=== PATIENT | female | born 1960 | race Caucasian/White ===

== ENCOUNTER → 2019-11-04 09:05 | Outpatient (CLI) | payer OTHER, SELFPAY ==
--- NOTE | ~2019-11-04 | MR_ITS ---
EXAMINATION: MR knee RT wo con DATE: 11/04/2019 09:53 INDICATION: Right knee joint effusion with pain and swelling TECHNIQUE: Magnetic resonance imaging (MRI) of the right knee was performed without intravenous contr ast. Sequences included coronal PD-weighted FSE, coronal PD-weighted FS FSE, sagittal T2-weighted FS E, sagittal PD-weighted FS FSE and axial PD weighted fat saturated FSE. COMPARISON: None. FINDINGS: Medial compartment: Complex tear of the medial meniscus with longitudinal oblique tear extending to the inferior articula r surface of the body and posterior horn of the medial meniscus. There is a secondary tear plane at t he posterior horn resulting in a meniscal flap arising from the lateral side of the posterior horn wh ich extends a short distance anteriorly along the shoulder the intercondylar eminence. Deep chondral ulceration along the anterior weightbearing medial femoral condyle with small central subchondral ost eophyte and minimal subarticular edema. Partial-thickness cartilage loss with smooth chondral surface along the posterior and medial margins of the medial tibial plateau and medial side of the posterior weightbearing medial femoral condyle. Lateral compartment: Longitudinal horizontal tear plane extending to the cephalad articular surface near the free edge of the body of the lateral meniscus. Deep chondral fissuring along the lateral tibial plateau and anteri or weightbearing lateral femoral condyle without degenerative subchondral changes. Small central subc hondral osteophytes at the site of deep chondral ulceration at the posterior most weightbearing later al femoral condyle. There is an additional delaminating chondral flap tear at or near the bone chondr al interface which extends 4 mm inferiorly from the inferior margin of the osteophyte. Patellofemoral compartment: Chondral ulceration and fissuring along the patella which raises. Near full-thickness along the apica l ridge with underlying subarticular edema. Small region of chondral fissuring without degenerative s ubarticular changes at the inferomedial aspect of the lateral trochlea. Ligaments and tendons: Anterior and posterior cruciate ligaments are normal. The medial collateral ligament and fibular damon ateral ligament complex are normal. Mild distal quadriceps tendinopathy with small enthesophytes at i ts patellar insertion. Additional mild tendinopathy at the proximal distal patellar tendon. The visua lized medial and lateral hamstring tendons as well as the iliotibial band are normal. Fluid: Large right knee joint effusion. 7 x 4 x 9 mm loose osteochondral body within a recess of Hoffa's fat pad anterior to the intercondylar notch. Osseous/other: Bone alignment is normal. No fracture or pathologic marrow replacing process. IMPRESSION: 1. Medial and lateral meniscal tears, the former complex with small displaced meniscal flap arising f rom the posterior horn. 2. 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 3. Likely reactive large right knee joint effusion. Reviewed, dictated and finalized at location A. IMPRESSION: 1. Medial and lateral meniscal tears, the former complex with small displaced m eniscal flap arising from the posterior horn. 2. 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 3. Likely reactive large right knee joint effusion.
== END ==
PROVIDERS: PCP Family Medicine; Visit Provider Orthopaedic Surgery
DX: M25.461 Effusion, right knee (principal); M23.251 Derangement of posterior horn of lateral meniscus due to old tear or injury, right knee; M23.221 Derangement of posterior horn of medial meniscus due to old tear or injury, right knee
CPT/HCPCS: 73721

== ENCOUNTER 2019-11-23 01:28 | Outpatient (CLI) | payer OTHER, SELFPAY ==
[2019-11-24 13:59] LABS: SARS-CoV-2 RNA PCR Negative
== END 2019-11-23 01:29 | disposition home or self-care (01) ==
LOC: ANHCOVIDDT 01:28
PROVIDERS: PCP Family Medicine; Visit Provider Orthopaedic Surgery
DX: Z01.818 Encounter for other preprocedural examination (principal); Z11.59 Encounter for screening for other viral diseases
CPT/HCPCS: 87635; C9803; U0003

== ENCOUNTER 2019-11-25 03:52 | Day surgery (SDC) | payer OTHER, SELFPAY ==
[2019-11-16 18:06] VITALS: BMI 21.8
[2019-11-25] VITALS (8 sets, daily range): BP systolic 113–160; BP diastolic 71–95; PULSE 55–71; RESP 12–20; TEMP 36.3–36.4; O2SAT 93–100
[2019-11-25] MEDS: ACETAMINOPHEN 500 MG TABLET 1000 MG PO (06:10)
[2019-11-25] MEDS: LACTATED RINGERS 1,000 ML 30 ML IV CONT ×2 (06:33→08:19)
[2019-11-25] MEDS: KETOROLAC 15 MG/ML VIAL (*BKC) IV PUSH (06:33)
--- NOTE | 2019-11-25 06:58 | P.PNAN_ITS ---
Anes - Initial Pre Proc Eval Procedure: Operation Date: 11/25/19 07:30 Proposed Procedures p Right Knee Arthroscopy, Partial Medial And Lateral Meniscectomy - Darryl Elkins MD Date/Time: 11/25/19 06:58 Surgeon: Darryl Elkins MD Pre Op Diagnosis: Right Knee Medial & Lateral Meniscus Tear Patient Data Age: 59 Gender: F Height: 5 ft 6 in Weight: 61.5 kg Last Vital Signs Temp 97.6 F 11/25/19 06:51 Pulse 71 11/25/19 06:51 Resp 16 11/25/19 06:51 BP 160/95 H 11/25/19 06:51 Pulse Ox 98 11/25/19 06:51 Allergies Allergy/AdvReac Type Severity Reaction Status Date / Time No Known Allergies Verified 11/25/19 06:05 Home Medications Medication Instructions Recorded Confirmed Type Collagen Plus Vitamin C 1 cap PO DAILY 11/16/19 11/25/19 History calcium carbonate [Calcium 600] 600 mg PO DAILY 11/16/19 11/25/19 History cholecalciferol (vitamin D3) 25 mcg PO DAILY 11/16/19 11/25/19 History [Vitamin D3] lisinopril 10 mg PO DAILY 11/16/19 11/25/19 History omeprazole 20 mg PO DAILY 11/16/19 11/25/19 History metoprolol tartrate 100 mg PO BID 11/21/19 11/25/19 History Patient hx anesthesia problems: none Family hx anesthesia problems: none PMFSH Past Medical History Medical History (Updated 11/25/19 @ 06:58 by Eduard Calvillo MD) 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 GERD (gastroesophageal reflux disease) Hypertension Knee joint effusion Osteoarthritis of right knee Social History Social History Smoking packs per day: 1 Smoking cigarettes per day: 20.0 Years smoked: 49 Smoking pack-years: 49.00 Smoking status: Heavy tobacco smoker Tobacco type: cigarettes Second hand tobacco smoke exposure: No Alcohol intake: current Substance use: never Living arrangements: with family Spiritual care concerns: No Anes - Eval Final PreProcedure Day of Procedure 11/25/19 06:58 Patient weight: normal Heart: regular rate and rhythm Lungs: clear to auscultation Airway: Mallampati scale class II Neurological: alert and oriented Last oral intake: >/= 8 hours ASA classification: II Emergent: no Anesthetic plan: proceed Anesthesia type and monitoring: general LMA and standard monitoring Informed Consent: The patient's anesthetic plan and its attendant risks and cailin efits were discussed with the patient/family/POA. Questions were solicited and answers provided to the satisfaction of the patient/family/POA.
--- NOTE | 2019-11-25 07:17 | WPDHPUPDATE1 ---
History and Physical Update Update Date/Time: 11/25/19 07:17 History and Physical has been reviewed, including an updated exam of the patient. There are NO changes in the patient's condition. Risks, benefits, and alternatives have been discussed and questions answered. Patient agrees to proceed with procedure.
[2019-11-25] MEDS: ceFAZolin 2 GM/D5W 50 ML 2 GM/50 ML BAG IVPB (07:22)
[2019-11-25] MEDS: BUPIVACAINE/EPINEPHRINE 0.5% 30 ML VIAL INFILTRATE (07:43)
--- NOTE | 2019-11-25 08:29 | P.OP_ITS ---
Procedure Note - Detailed Date of procedure: 11/25/19 Pre-op diagnosis: Right Knee Medial & Lateral Meniscus Tear Medial and lateral meniscus tear. Post-op diagnosis: same Procedure performed: Arthroscopic partial medial and lateral meniscectomy. Description of procedure: A large displaced medial meniscus fragment was identified in the anterior aspect of the medial compartment. This appeared to be chronically irritating the medial femoral condyle which showed grade 3 chondromalacia. A subtotal meniscectomy was performed. The lateral meniscus showed modest degenerative tearing and was treated with arthroscopic debridement in the inner rim of the meniscus pretty much in its entirety. Grade 2 chondromalacia on the central weight-bearing portion of the lateral tibia. Grade 1/2 on the femur in a small section laterally. Patella showed grade 3 chondromalacia and a large section. The trochlea showed grade 1 chondromalacia. No other definite loose body was found. It was felt that the displaced anterio r meniscus represented the loose body seen on the MRI. The anterior cruciate ligament was intact. [facility] Surgeon: Darryl Elkins MD Exhibit Carpenter: Sandy reilly; physician assistant professor of religion Estimated blood loss (mL): 5 Complications: None Condition: stable Findings: Brief History: The patient complained of knee pain, large effusions and mechanical symptoms despite conservative treatment. MRI confirmed the presence of a meniscus tear. Procedure Details: The patient was identified and the surgical site confirmed and signed in the preoperative holding area. Antibiotics were started per protocol. She was brought to the operative room and transferred to the OR table. A general anesthetic was administered. Supine position with the operative lower extremity position in the leg woodson after placement of a well padded tourniquet. The leg support was lowered and the contralateral limb was supported with a soft bolster. The knee was prepped and draped in the usual sterile fashion. A time-out was performed. The portal sites were marked and infiltrated with 0.5% Marcaine 20 mL. The limb was exsanguinated and the tourniquet inflated to 300 mL Hg. Standard inferolateral and inferomedial portals were established. Inflow was obtained with the saline pump. The camera was introduced. Diagnostic inspection of the joint was accomplished. The medial meniscus was identified in the anterior medial compartment. The lateral meniscus was unstable and severely damaged. Subtotal meniscectomy was performed as described above. Partial lateral meniscectomy was performed. No other loose bodies were identified. There was a mild synovitis in the medial compartment. Mild to moderate early degenerative changes diffusely. The arthroscopic instruments were removed. The tourniquet released and wounds closed with subcutaneous 4-0 Monocryl absorbable suture. Steri strips and a sterile dressing were applied. A light elastic wrap was placed. The patient was extubated and brought to the recovery room in stable condition.
== END 2019-11-25 10:02 | disposition home or self-care (01) ==
PROVIDERS: PCP Family Medicine; Visit Provider Orthopaedic Surgery
PROC: (CPT 29870; principal; 2019-11-25 07:30)
DX: M23.331 Other meniscus derangements, other medial meniscus, right knee (principal); M23.361 Other meniscus derangements, other lateral meniscus, right knee; M94.261 Chondromalacia, right knee; I10 Essential (primary) hypertension; K21.9 Gastro-esophageal reflux disease without esophagitis; F17.210 Nicotine dependence, cigarettes, uncomplicated
CPT/HCPCS: 29880; A9270; J0690; J1100; J1885; J2250; J2405; J2704; J3010; J7120

== ENCOUNTER → 2022-01-11 07:47 | Outpatient (CLI) | payer OTHER, SELFPAY ==
--- NOTE | ~2022-01-11 | DEXA_ITS ---
Bone Density Report Name: CRISTIANE SHEEHAN Age: 61 Sex: Female Ethnicity: White Date of : 1960 Indication: postmenopausal; screening for osteoporosis; height loss; prior fracture; Referring Provider: Minal Tejada Study: Bone densitometry was performed. Exam Date: January 11, 2022 Accession number: [id number] Bone Density: Region BMD T-score Z-score Classification AP Spine (L1, L4) 1.145 1.0 2.6 Normal Femoral Neck (Left) 0.617 -2.1 -0.7 Osteopenia Total Hip (Left) 0.751 -1.6 -0.4 Osteopenia Femoral Neck (Right) 0.620 -2.1 -0.6 Osteopenia Total Hip (Right) 0.710 -1.9 -0.8 Osteopenia Total Hip Mean 0.731 -1.8 -0.6 Osteopenia World Health Organization criteria for BMD impression classify patients as: Normal (T-score at or above -1.0), Osteopenia (T-score between -1.0 and -2.5), or Osteoporosis (T-score at or below -2.5). 10-year Fracture Risk: FRAX not reported because: Prior hip or vertebral fracture Clinical Information Provided by Patient: Have had a previous hip or vertebral fracture Has had a low trauma fracture Smokes Has 3 or more alcoholic drinks per day Has used the following medications: Vitamin D Patient maximum height was 65.75 Menopause Age: 38 Drinks caffeinated beverages Onset of menses at age 11 Number of children 0 Impression: The patient has low bone mass, based on the Left Femoral Neck T-score. The patient has risk factors, including: smoking, excessive alcohol use, previous fracture. Discussion: INCREASED RISK OF FRACTURE DUE TO HISTORY OF FRACTURE. The patient's previous fracture puts the patient at high risk of a future fracture. In untreated patients, the risk of osteoporotic fracture increases approximately two-fold for each 1.0 SD decrease in T-score. Low bone density is not the only risk factor for fracture; also consider factors such as patient's age, frailty or poor health, risk of falling, risk of injury, previous osteoporotic fracture, family history of osteoporosis, cigarette smoking, low body weight, etc. Not everyone with a low trauma fracture has osteoporosis; osteomalacia and other metabolic bone disorders should also be considered. Patients who have osteoporosis should be evaluated for specific diseases and conditions (secondary causes) that may cause or contribute to bone loss and fracture risk. National Osteoporosis Foundation (NOF) recommends pharmacologic intervention for patients with a prior hip or vertebral fracture regardless of BMD T-score. The patient should follow a healthful lifestyle (good nutrition with adequate calcium and vitamin D, and appropriate weight-bearing exercise). Follow-Up: Consider a repeat BMD and Vertebral Fracture Assessment (VFA) exam in 2 years or sooner if medically necessary, to reassess this patient's status. Reported by: NANY
--- NOTE | ~2022-01-11 | MM_ITS ---
EXAMINATION: MM screening oj BI w crista HISTORY: Screening mammogram TECHNIQUE: Craniocaudal and mediolateral oblique 3-D tomosynthesis images were obtained and synthetic 2-D images were generated. CAD analysis was submitted and interpreted. COMPARISON: No prior mammogram is available for comparison at this institution. BREAST PARENCHYMAL COMPOSITION: There are scattered areas of fibroglandular density. FINDINGS: There is no evidence of suspicious mass, calcification, or architectural distortion to sugg est malignancy in either breast. There has been no suspicious interval change. IMPRESSION: 1. No mammographic evidence of malignancy. 2. Recommend routine screening mammography in one year. BI-RADS Category 1: Negative Reviewed, dictated and finalized at location B.
== END ==
PROVIDERS: PCP Family Medicine; Visit Provider Physician Assistant Medical
DX: Z12.31 Encounter for screening mammogram for malignant neoplasm of breast (principal); Z13.820 Encounter for screening for osteoporosis; M85.852 Other specified disorders of bone density and structure, left thigh; M85.851 Other specified disorders of bone density and structure, right thigh
CPT/HCPCS: 77063; 77067; 77080

== ENCOUNTER 2023-11-02 08:59 | Outpatient (CLI) | payer MEDICARE, OTHER, SELFPAY ==
--- NOTE | ~2023-11-02 | US_ITS ---
EXAMINATION: US abdomen complete DATE: 11/02/2023 09:49 INDICATION: Abnormal levels of other serum enzymes. TECHNIQUE: Multiple grayscale and Doppler ultrasound images of the abdomen were obtained. COMPARISON: None FINDINGS: The visualized portions of the head, body, and tail of the pancreas are normal. There is di ffuse hepatic steatosis. There is a 2.6 cm hyperechoic mass in the liver. The gallbladder is normal i n size. No gallstones or gallbladder wall thickening. There is no sonographic Marroquin's sign. The comm on duct is normal and measures 4 mm. The spleen is normal in size. Calcifications in the spleen are c onsistent with old granulomatous disease. The kidneys are normal in size. Abdominal aorta is normal in caliber. Inferior vena cava is normal. IMPRESSION: 1. Diffuse hepatic steatosis. 2. 2.6 cm hyperechoic liver mass. In the absence of chronic liver disease or known malignancy, this f inding is likely a hemangioma or focal steatosis. Reviewed, dictated and finalized at location A. IMPRESSION: 1. Diffuse hepatic steatosis. 2. 2.6 cm hyperechoic liver mass. In the absence of chronic liver disease or kn own malignancy, this finding is likely a hemangioma or focal steatosis.
== END 2023-11-02 09:00 | disposition home or self-care (01) ==
PROVIDERS: PCP Family Medicine; Visit Provider Physician Assistant Medical
DX: R74.8 Abnormal levels of other serum enzymes (principal); K76.0 Fatty (change of) liver, not elsewhere classified
CPT/HCPCS: 76700

== ENCOUNTER 2023-11-27 12:44 | Outpatient (CLI) | payer MEDICARE, OTHER, SELFPAY ==
--- NOTE | ~2023-11-27 | US_ITS ---
Duplex Sonography of the bilateral lower extremities: Indication: Soft tissue disorder, left calf pain and swelling Sagittal and transverse B-mode images as well as color-flow imaging were performed on the right and l eft femoral and popliteal veins. B-mode examination was done without and with compression in the tra nsverse plane. There is good visualization of the bilateral common femoral, proximal profunda femora l, superficial femoral, greater saphenous, and popliteal veins. Normal flow was seen on color-flow im aging. Normal compressibility was demonstrated. There is normal flow in the visualized right calf ve ins. There is noncompressibility of the left peroneal and posterior tibial veins, with some echogenic mate rial in them, compatible with thrombus. Impression: Thrombus involving the left peroneal and posterior tibial veins in the calf. Reviewed, dictated and finalized at location M. Impression: Thrombus involving the left peroneal and posterior tibial veins in the calf.
== END 2023-11-27 12:45 | disposition home or self-care (01) ==
PROVIDERS: PCP Family Medicine; Visit Provider Physician Assistant Medical
DX: M79.89 Other specified soft tissue disorders (principal)
CPT/HCPCS: 93970

== ENCOUNTER 2024-05-26 10:02 | Outpatient (CLI) | payer MEDICARE, OTHER, SELFPAY ==
--- NOTE | ~2024-05-26 | US_ITS ---
EXAMINATION: US abdomen limited DATE: 05/26/2024 11:27 INDICATION: Fatty liver. Liver mass. TECHNIQUE: Multiple grayscale and Doppler ultrasound images of the abdomen were obtained. COMPARISON: Ultrasound 11/02/2023 FINDINGS: The visualized portions of the head, body, and tail of the pancreas are normal. There is di ffuse hepatic steatosis. There is a 2.2 cm hyperechoic mass at the hilum of the liver. There is stefani l flow in main portal vein. The gallbladder is normal in size. No gallstones or gallbladder wall thic kening. There is no sonographic Marroquin's sign. The common duct is normal and measures 5 mm. IMPRESSION: 1. Diffuse hepatic steatosis. 2. 2.2 cm hyperechoic liver mass, stable from 11/02/2023, likely a hemangioma or focal steatosis. Reviewed, dictated and finalized at location A. EMIC SUCCESS COORDINATOR
--- OUTSIDE RECORDS SUMMARY | 2024-06-02 02:28 | XMS_ITS | Clinical Summary ---
Author Organization [facility] Address [address] [place] [address] Phone Care Team Providers Care Sandblaster Glass Name Role Phone Minal Tejada Primary Care Provider Allergies No known active allergies Medications lisinopril (PRINIVIL, ZESTRIL) 10 MG Tablet TK 1 T PO QD 2 10/07/2018 Active metoprolol succinate (TOPROL-XL) 200 MG TABLET SR 24 HR TK 1 T PO QD 1 10/07/2018 Active Social History Tobacco Use Types Packs/Day Years Used Date Smoking Tobacco: Every Day Cigarettes 1 48 Smokeless Tobacco: Never Alcohol Use Standard Drinks/Week Comments Yes 0 (1 standard drink = 0.6 oz pur e alcohol) social Comments No Sex and Gender Information Value Date Recorded Sex Assigned at Not on file Legal Sex Female 10:11 PM CDT Gender Identity Not on file Sexual Orientation Not on file Last Filed Vital Signs Vital Sign Reading Time Taken Comments Blood Pressure 132/88 03/31/2020 1:30 AM FINANCIAL SERVICES DIRECTOR Pulse 75 03/31/2020 1:30 AM FINANCIAL SERVICES DIRECTOR Temperature 36.2 ??C (97.2 ??F) 03/30/2020 10:[address] Respiratory Rate 18 03/31/2020 1:30 AM FINANCIAL SERVICES DIRECTOR Oxygen Saturation 96% 03/31/2020 1:30 AM FINANCIAL SERVICES DIRECTOR Inhaled Oxygen Concentration - - Weight 61.2 kg (135 lb) 03/30/2020 10:10 PM FINANCIAL SERVICES DIRECTOR Height 167.6 cm (5' 6 ) 03/30/2020 10:10 PM FINANCIAL SERVICES DIRECTOR Body Mass Index 21.79 03/30/2020 10:10 PM FINANCIAL SERVICES DIRECTOR Plan of Treatment Health Maintenance Due Date Last Done Comments DEXA Bone Density 1960 Hepatitis C Virus (HCV) Screening 1960 TdaP Immunization 1960 Pap Smear 1979 Cervical Cancer Screening (CCS) 1988 HPV/Cotest 1988 Colonoscopy 2003 Colorectal Cancer Screening 2003 Cologuard 2008 Immunochemical Fecal Occult Blood 2008 Mammogram 2008 Pneumococcal Immunization (5 0+ years) (1 of 1 - PCV) 2008 Zoster Immunization (1 of 2) 2008 Influenza Immunization (#1) 2024 03/25/2018 SARS-COV-2 Immunization (3 - season) 2024 06/29/2020, 06/01/2020 Respiratory Syncytial Virus (RSV) Immunization (Adult) (1 - 1-dose 75+ series) 2033 Hepatitis B Immunization Aged Out No longer eligible based on patient's age to complete this topic Meningococcal Immunization (ACWY) Aged Out No longer eligible b ased on patient's age to complete this topic Rotavirus Immunization Aged Out No lo nger eligible based on patient's age to complete this topic Care Teams Sandblaster Glass Relationship Specialty Start Date End Date Minal Tejada [address] [place] [id number] PCP - General Family Medicine 10/08/17
== END 2024-05-26 10:03 | disposition home or self-care (01) ==
PROVIDERS: PCP Family Medicine; Visit Provider Nurse Practitioner Family
DX: K76.0 Fatty (change of) liver, not elsewhere classified (principal); R16.0 Hepatomegaly, not elsewhere classified; R74.8 Abnormal levels of other serum enzymes
CPT/HCPCS: 76705

== ENCOUNTER 2024-10-27 14:35 | Outpatient (CLI) | payer MEDICARE, OTHER, SELFPAY ==
--- NOTE | ~2024-10-27 | US_ITS ---
EXAMINATION: US venous doppler [facility] DATE: 10/27/2024 15:28 INDICATION: Left lower limb pain and swelling TECHNIQUE: Grayscale ultrasound images without and with compression and Doppler ultrasound images of the bilateral lower extremity veins were obtained. COMPARISON: 11/27/2023 FINDINGS: The visualized portions of right common femoral vein, profunda (deep) femoral vein, femoral vein, pop liteal vein, posterior tibial veins, peroneal veins, gastrocnemius vein and greater saphenous vein ou tflow are patent. There is new noncompressible deep venous thrombosis in the left common femoral vein, profunda femoral vein and the lesser saphenous vein at the calf. There is residual small amount of vascular flow on c olor Doppler at the profunda femoral vein and common femoral vein. The left femoral vein and proximal to mid greater saphenous vein remains patent and compressible. Persistent nonocclusive likely chroni c deep venous thrombosis in the left posterior tibial and peroneal veins. IMPRESSION: 1. New deep venous thrombosis at the left common femoral, profunda femoral, popliteal and lesser sap henous veins with residual chronic nonocclusive deep venous thrombosis in the left posterior tibial a nd peroneal veins. 2. No deep venous necrosis in the right lower limb. Reviewed, dictated and finalized at location B. IMPRESSION: 1. New deep venous thrombosis at the left common femoral, profunda femoral, po pliteal and lesser saphenous veins with residual chronic nonocclusive deep veno us thrombosis in the left posterior tibial and peroneal veins. 2. No deep venous necrosis in the right lower limb.
--- OUTSIDE RECORDS SUMMARY | 2024-10-27 14:49 | XMS_ITS | Clinical Summary ---
Author Organization [facility] Address [address] [place] [address] Phone Care Team Providers Care Operations Tech Name Role Phone Minal Tejada Primary Care Provider [phone] Allergies No known active allergies Medications lisinopril [...] Comments Blood Pressure 132/88 03/31/2020 1:30 AM ADMISSION NURSE Pulse 75 03/31/2020 1:30 AM ADMISSION NURSE Temperature 36.2 C (97.2 F) 03/30/2020 10:10 PM ADMISSION NURSE Respiratory Rate 18 03/31/2020 1:30 AM ADMISSION NURSE Oxygen Saturation 96% 03/31/2020 1:30 AM ADMISSION NURSE Inhaled Oxygen Concentration - - Weight 61.2 kg (135 lb) 03/30/2020 10:10 PM ADMISSION NURSE Height 167.6 cm (5' 6) 03/30/2020 10:10 PM ADMISSION NURSE Body Mass Index 21.79 03/30/2020 10:10 PM ADMISSION NURSE Plan of Treatment Health Maintenance Due Date Last Done Comments Hepatitis C Virus (HCV) Screening 1960 TdaP Immunization 1960 Cologuard 2003 Colonoscopy 2003 Colorectal Cancer Screening 2003 Immunochemical Fecal Occult Blood 2003 Pneumococcal Immunization (5 0+ years) (1 of 1 - PCV) 2008 Zoster Immunization (1 of 2) 2008 SARS-COV-2 Immunization (3 - season) 2024 06/29/2020, 06/01/2020 Influenza Immunization (Seas on Ended) 2025 03/25/2018 Respiratory Syncytial Virus (RSV) Immunization (Adult) (1 - 1-dose 75+ series) 2033 Hepatitis B Immunization Aged Out No longer eligible based on patient's age to complete this topic Human Papillomavirus (HPV) Immunization Aged Out No longer eligible b ased on patient's age to complete this topic Meningococcal Immunization (ACWY) Aged Out No longer eligible b ased on patient's age to complete this topic Rotavirus Immunization Aged Out No lo nger eligible based on patient's age to complete this topic Care Teams Operations Tech Relationship Specialty Start Date End Date Minal Tejada [address] [place], [place] [id number] PCP - General Family Medicine 10/08/17
--- OUTSIDE RECORDS SUMMARY | 2024-10-27 14:49 | XMS_ITS | Referral Summary ---
Author Organization [facility] [address] Address [address] [place] [address] Care Team Providers Care Caser Name Role Phone Burt Eli MD Primary Care Provider [phone] Allergies No known active allergies Medications cholecalciferol (VITAMIN D3) 2,000 unit capsule take 1 by Oral route every day 0 2 Active metoprolol XL (TOPROL XL) 200 mg 24 hr tablet take 1 tablet by oral route every day 0 0 6 Active Additional Information Patient not taking.Reported on 02/16/2024 omeprazole (PriLOSEC) 20 mg capsule Take 1 capsule (20 mg total) by mouth 2 (two) times a day Active calcium-magnesi um-zinc tablet Take 1 tablet by mouth daily Active metoprolol (LOPRESSOR) 100 mg tablet Take 1 tablet (100 mg total) by mouth 2 (two) times a day 3 Active rosuvastatin (CRESTOR) 20 mg tablet Take 1 tablet (20 mg total) by mouth daily 3 Active lisinopriL (PRINIVIL,ZESTR IL) 20 mg tablet Take 1 tablet (20 mg total) by mouth daily 3 Active Active Problems Problem Noted Date Diagnosed Date Diastolic dysfunction without heart failure 11/08 No pathologic diagnosis 09/24/2013 Overview (08/15/2016): No diagnosis Social History Tobacco Use Types Packs/Day Years Used Date Smoking Tobacco: Former Cigarettes Smokeless Tobacco: Never Comments:Smoking History Pac ks/day: 1 Packs Alcohol Use Standard Drinks/Week Comments Yes 18 (1 standard drink = 0.6 oz pu re alcohol) PHQ-2 Answer Date Recorded PHQ-2 Total Score (If total score is 3 or more points, staff should administer the PHQ-9) 0 02/16/2024 Comments No Sex and Gender Information Value Date Recorded Sex Assigned at Not on file Legal Sex Female 1:46 AM PATTERN MAKER PROGRAMER Gender Identity Not on file Sexual Orientation Not on file Last Filed Vital Signs Vital Sign Reading Time Taken Comments Blood Pressure 136/86 02/16/2024 9:45 AM CDT Pulse 77 01/03/2019 8:38 AM CDT Temperature - - Respiratory Rate - - Oxygen Saturation 94% 01/03/2019 8:38 AM CDT Inhaled Oxygen Concentration - - Weight 69.1 kg (152 lb 6.4 oz) 02/16/2024 9:45 AM CDT Height 167.6 cm (5' 6) 02/16/2024 9:45 AM CDT Body Mass Index 24.6 02/16/2024 9:45 AM CDT Plan of Treatment Not on file Procedures Procedure Name Priority Date/Time Associated Diagnosis Comments SCREENING MAMMOGRAM BILATERAL W TOMÁS Schedule Routine, Read Routine (OP Routine) 06/03/2024 11:01 AM PATTERN MAKER PROGRAMER Encounter for screening mammogram for breast cancer PAP WITH REFLEX TO HIGH RISK HPV Routine 02/16/2024 10:43 AM CDT Well woman exam DEXA AXIAL SKELETON BONE DENSITY 1 OR MORE SITES Routine 06/15/2015 2:25 PM PATTERN MAKER PROGRAMER from Last 3 Months or Most Recently Relevant to Health Maintenance Results * Screening Mammogram Bilateral W Tomás (06/03/2024 11:01 AM PATTERN MAKER PROGRAMER) Anatomical Region Laterality Modality Breast Bilateral Mammography 06/03/2024 11:1 3 AM PATTERN MAKER PROGRAMER Impressions 06/03/2024 11:13 AM PATTERN MAKER PROGRAMER There is no mammographic evidence of malignancy. A 1 year screening mammogram is recommended. BI-RADS: 1 - Negative. The patient has been or will be contacted. The patient will be entered into a reminder system with a target due date of 1 year for her next mammogram. Electronically signed by: Kalpana Jefferson M.D. Narrative 06/03/2024 11:13 AM PATTERN MAKER PROGRAMER EXAMINATION: SCREENING MAMMOGRAM BILATERAL W TOMÁS ORDERING HEALTHCARE PROVIDER: STEPHENIE MUSE HISTORY: Routine screening mammography. COMPARISON: 12/25/2022, 06/15/2015 TECHNIQUE: CC and MLO views of the bilateral breasts were obtained with digital technique using breast tomosynthesis with C view. Computer aided detection was utilized. FINDINGS: DENSITY: There are scattered areas of fibroglandular density. BREASTS: There are no suspicious masses, suspicious calcifications, or other suspicious findings in either breast. There has been no suspicious interval change. us Stephenie Muse SLD EDUCATIONAL AIDE IMG MAMMO PROCEDURES Final Resul t * Pap with reflex to High Risk HPV and Genotyping (Cytology Component) (02/16/2024 10:43 AM CDT) Thin prep (Pap test) 02/16/2024 10:43 AM CDT 02/16/2024 10:43 AM CDT Narrative PATHOLOGY CH - 02/23/2024 12:19 PM CDT [facility] Department of Pathology [address] [place] [address] Final Report Note to Patients: This report may contain a detailed description of human tissue sent by a health care provider to the laboratory for pathologic evaluation. The content of this report is essential for diagnosis and may provide important critical findings. This information may be unfamiliar to patients to review without a medical professional present. It is advised that the patient review this report in the presence of a health care provider who can answer questions and explain the details. Patient Name: CRISTIANE SHEEHAN Address: [facility] [address] [place] [place] [address] Gender: F : 1960 (Age: 63) Service: Location: [facility] : [id number] [facility] #: [id number] Patient Type: SPECIMEN Taken: 02/16/2024 Received: 02/16/2024 Accessioned:: 02/17/2024 Reported: 02/23/2024 Physician(s): LUIS Antonio FNP Diagnosis: SOURCE OF SPECIMEN Imaged Thinprep Pap Test w/ Reflex HPV - Wholesale Account Manager Cytologic Material: STATEMENT OF ADEQUACY - Specimen satisfactory for interpretation; indeterminate endocervical component due to marked atrophy GENERAL CATEGORIZATION: - Negative for intraepithelial lesion or malignancy INTERPRETATION: - Atrophic smear pattern - Numerous inflammatory cells present DONAVON Park(ASCP) Report Electronically Reviewed and Signed Out By DONAVON Crowley(ASCP) 02/23/2024 12:19:58Specimen(s) Received: A: Imaged Thinprep Pap Test w/ Reflex HPV - Wholesale Account Manager Cytologic Material Clinical History: Menstrual History: Post-menopausal The Pap test is a screening test used to aid in the detection of cervical cancer and its precursors. It should not be the sole means by which malignant and premalignant lesions are diagnosed. Both false negative and false positive results may occur. It also has poor sensitivity for the detection of endometrial lesions and should not be used to evaluate suspected endometrial abnormalities. For these reasons it is most important to obtain Pap tests at regular intervals. The performance characteristics of some immunohistochemical stains, fluorescence in-situ hybridization tests and immunophenotyping by flow cytometry cited in this report (if any) were determined by the Surgical Pathology Department at [facility] as part of an ongoing quality assurance monitor final program and in compliance with federally mandated regulations drawn from the Clinical Laboratory Improvement Act of 1988 (CLIA '88). Some of these tests rely on the use of analyte specific reagents and are subject to specific labeling requirements by the US Food and Drug Administration. Such diagnostic tests may only be performed in a facility that is certified by the Department of Health and Human Services as a high complexity laboratory under CLIA '88. The FDA has determined that such clearance or approval is not necessary. This test is used for clinical purposes. It should not be regarded as investigational or for research. Nevertheless, federal rules concerning the medical use of analyte specific reagents require that the following disclaimer be attached to the report: This test was developed and its performance characteristics determined by the Surgical Pathology Department [facility]. It has not been cleared or approved by the U. S. Food and Drug Administration. Stephenie Muse NP LAB CYTOLOGY [place] [address] [place] [address] * Dexa Axial Skeleton Bone Density 1 or 2 Site (06/15/2015 2:25 PM PATTERN MAKER PROGRAMER) Anatomical Region Laterality Modality Body N/A Radiographic Ally ging 06/15/2015 2:25 PM PATTERN MAKER PROGRAMER Narrative 06/16/2015 12:44 PM PATTERN MAKER PROGRAMER DEXA Bone Density Axial Acc#: [id number] DATE OF EXAM: Jun 15 2015 CLINICAL HISTORY: 55 year old post-menopausal female who states a history of Vitamin D therapy. RESULT: DXA RIGHT HIP RESULTS SUMMARY: BMD (g/cm'b2) T-score Z-score Neck 0.778 -0.6 0.5 Total 0.770 -1.4 -0.6 DXA LEFT HIP RESULTS SUMMARY: BMD (g/cm'b2) T-score Z-score Neck 0.652 -1.8 -0.6 Total 0.801 -1.2 -0.4 DXA L-SPINE RESULTS SUMMARY: BMD (g/cm'b2) T-score Z-score L1 1.098 1.0 2.0 L2 1.376 3.2 4.3 L3 1.284 1.8 3.1 L4 1.252 1.7 3.0 Total 1.256 1.9 3.1 IMPRESSION: 1. BONE MINERAL DENSITY OF THE LUMBAR SPINE IS WITHIN NORMAL LIMITS. COMPARED TO THE BASELINE STUDY OF 11/04/11, THERE HAS BEEN A STATISTICALLY SIGNIFICANT DECREASE IN BONE MINERAL DENSITY. 2. BONE MINERAL DENSITY OF THE RIGHT FEMORAL NECK IS MILDLY DECREASED AND INDICATIVE OF OSTEOPENIA BY WORLD HEALTH ORGANIZATION CRITERIA. COMPARED TO THE BASELINE STUDY OF 11/04/11, THERE HAS BEEN A STATISTICALLY SIGNIFICANT DECREASE IN BONE MINERAL DENSITY. 3. BONE MINERAL DENSITY OF THE LEFT FEMORAL NECK IS MILDLY DECREASED AND INDICATIVE OSTEOPENIA BY WORLD HEALTH ORGANIZATION CRITERIA. COMPARED TO THE BASELINE STUDY OF 11/04/11, THERE HAS BEEN A STATISTICALLY SIGNIFICANT DECREASE IN BONE MINERAL DENSITY. COMMENT: W.H.O. defines the T-score of between -1 and -2.5 as osteopenia, the level at which there may be an increased risk of developing osteoporosis and fractures in the future. Osteoporosis is defined as T-score lower than -2.5 (significantly increased risk of fracture due to osteoporosis). T-score is a comparison to peak bone mineral density of young adult reference population. Z-score is a comparison to bone mineral density of sex and age group population. Interpreting Physician: DR YADIRA LOMAS M.D. Read on: Jun 15 2015 2:39P Transcribed by: rosana On: Jun 15 2015 6:38P Approved Electronically by: ABEBE Paris, DR MAY on: Jun 16 2015 12:43P Attending: DR DOUGLAS RAMIREZ Requesting: DR DOUGLAS RAMIREZ Requesting Attending Attending ID: [id number] Requesting ID: [id number] Report To 1 ID: [id number] Report To 1 Name: DR DOUGLAS RAMIREZ Report To 1 FAX: [phone] NextGen Order #: Procedure Note Provider, MD Dacia - 09/03/2016 DEXA Bone Density Axial Acc#: [id number] DATE OF EXAM: Jun 15 2015 CLINICAL HISTORY: 55 year old post-menopausal female who states a history of Vitamin Dtherapy. RESULT: DXA RIGHT HIP RESULTS SUMMARY: BMD (g/cm'b2) T-score Z-score Neck 0.778 -0.6 0.5 Total 0.770 -1.4-0.6 DXA LEFT HIP RESULTS SUMMARY: BMD (g/cm'b2) T-score Z-score Neck 0.652 -1.8 -0.6 Total 0.801 -1.2-0.4 DXA L-SPINE RESULTS SUMMARY: BMD (g/cm'b2) T-score Z-score L1 1.098 1.0 2.0 L2 1.376 3.2 4.3 L31.284 1.8 3.1 L4 1.252 1.7 3.0 Total 1.256 1.9 3.1 IMPRESSION: 1. BONE MINERAL DENSITY OF THE LUMBAR SPINE IS WITHIN NORMAL LIMITS.COMPARED TO THE BASELINE STUDY OF 11/04/11, THERE HAS BEEN A STATISTICALLYSIGNIFICANT DECREASE IN BONE MINERAL DENSITY. 2. BONE MINERAL DENSITY OF THE RIGHT FEMORAL NECK IS MILDLY DECREASED ANDINDICATIVE OF OSTEOPENIA BY WORLD HEALTH ORGANIZATION CRITERIA. COMPAREDTO THE BASELINE STUDY OF 11/04/11, THERE HAS BEEN A STATISTICALLYSIGNIFICANT DECREASE IN BONE MINERAL DENSITY. 3. BONE MINERAL DENSITY OF THE LEFT FEMORAL NECK IS MILDLY DECREASED ANDINDICATIVE OSTEOPENIA BY WORLD HEALTH ORGANIZATION CRITERIA. COMPARED TOTHE BASELINE STUDY OF 11/04/11, THERE HAS BEEN A STATISTICALLY SIGNIFICANTDECREASE IN BONE MINERAL DENSITY. COMMENT: W.H.O. defines the T-score of between -1 and -2.5 as osteopenia, thelevel at which there may be an increased risk of developing osteoporosisand fractures in the future. Osteoporosis is defined as T-score lowerthan -2.5 (significantly increased risk of fracture due to osteoporosis).T-score is a comparison to peak bone mineral density of young adultreference population. Z-score is a comparison to bone mineral density ofsex and age group population. Interpreting Physician: DR YADIRA LOMAS M.D. Read on: Jun 15 20152:39P Transcribed by: rosana On: Jun 15 2015 6:38P Approved Electronically by: ABEBE Paris, DR MAY on: Jun 16 201512:43P Attending: DR DOUGLAS RAMIREZ Requesting: DR DOUGLAS RAMIREZ Requesting Attending Attending ID: [id number] Requesting ID: [id number] Report To 1 ID: [id number] Report To 1 Name: DR DOUGLAS RAMIREZ Report To 1 FAX: [phone] NextGen Order #: Historical Provider MD ADAMS DXA PROCEDURES Final Result from Last 3 Months or Most Recently Relevant to Health Maintenance Insurance MEDICARE [facility] Care Teams Caser Relationship Specialty Start Date End Date Burt Eli MD PCP - General 08/25/11
--- OUTSIDE RECORDS SUMMARY | 2024-10-27 14:49 | XMS_ITS | Clinical Summary ---
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: removal of mass OTHER SURGICAL HISTORY lump on nose x2: surgical removal OTHER SURGICAL HISTORY cervical fractures: 2 level cervical fusion and platting OTHER SURGICAL HISTORY Carpal tunnel syndrome, left side: carpal tunnel release OTHER SURGICAL HISTORY muscle & tendon tears, right shoulder: splinting OTHER SURGICAL HISTORY tendon tears, right hand, third digit: splinting OTHER SURGICAL HISTORY Dysplasia of cervix: endometrial ablation: Cryotherapy OTHER SURGICAL HISTORY 1983 : spontaneous Medical History Medical History Date Comments Hx Other Medical Breast lump x2 Hx Other Medical ganglian cyst, right wrist Hx Other Medical 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 Hx Other Medical lump on nose x2 Hx Other Medical cervical fractu res Hx Other Medical Carpal tunnel s yndrome, left side Hx Other Medical muscle & tendon tears, right shoulder Hx Other Medical tendon tears, r ight hand, third digit Hx Other Medical Dysplasia of ce rvix Hx Other Medical 1983 ; Comm ents: Pt was on Accu-tane; Outcome: Unknown sex Family History Medical History Relation Name Comments Diabetes Father Diabetes mellit us; Heart disease Father Heart disease; Hypertension Father Hypertension; Breast cancer Mother Irritable bowel syndrome Mother Irr itable bowel disease; Throat cancer Paternal Grandfather Cancer , throat; Cause of : Cancer, throat Other Paternal Grandmother Cancer, unspecified; Cause of : Cancer, unspecified Kidney disease Sister 2 Renal disease ; Cause of : Renal disease Relation Name Status Comments Brother Alive Father Alive Mother Alive Paternal Grandfather Paternal Grandmother Sister 1 Sister 2 (Age 10) Social History Tobacco Use Types Packs/Day Years [...] on file Legal Sex Female 1:46 AM FIELD CARE ADVOCATE Gender Identity Not on file Sexual Orientation Not on file Obstetrics History Para Term AB IAB SAB Ectopic Multiple Livin g Live Births 1 0 0 1 0 Date Outcome GA Total Labor Labor/2nd/3rd Weight Sex Type Anes PTL Kandace A1 A5 Name Clin AB Last Filed Vital Signs Vital Sign Reading Time Taken Comments Blood Pressure 136/86 02/16/2024 9:45 AM CDT Pulse 77 01/03/2019 8:38 AM CDT Temperature - - Respiratory Rate - - Oxygen Saturation 94% 01/03/2019 8:38 AM CDT Inhaled Oxygen Concentration - - Weight 69.1 kg (152 lb 6.4 oz) 02/16/2024 9:45 A M CDT Height 167.6 cm (5' 6) 02/16/2024 9:45 AM CDT Body Mass Index 24.6 02/16/2024 9:45 AM CDT Plan of Treatment Health Maintenance Due Date Last Done Comments Colon Cancer Screening-Colonoscopy 1960 Fall Risk Assessment 1960 Hepatitis C Screening 1960 DTaP/Tdap/Td Vaccine (1 - Tdap) 1969 Hepatitis B Screening 1976 Pneumococcal vaccine 65+ (1 of 1 - PCV) 2008 Zoster Vaccine (1 of 2) 2008 Osteoporosis Screening-Bone Density Scan 06/15/2017 06/15/2015 Well Visit 65+ 11/22/2023 11/21/2022 Covid-19 Vaccine (3 - 2023-2 5 season) 2024 06/29/2020, 06/01/2020 Influenza Vaccine (Season Ended) 2025 03/25/20 18 Depression Screening 02/15/2025 02/16/2024, 11/22/19 23 Breast Cancer Screening-Mammogram 06/03/2025 06/03/2024, 12/25/2022, 06/15/2015, Additional history exists Cervical Cancer Screening Discontinued 2023, 11/21/2022, 06/10/2015 Procedures Procedure Name Priority Date/Time Associated Diagnosis Comments SCREENING MAMMOGRAM BILATERAL W TOMÁS Schedule Routine, Read Routine (OP Routine) 06/03/2024 11:01 AM FIELD CARE ADVOCATE Encounter for screening mammogram for breast cancer PAP WITH REFLEX TO HIGH RISK HPV Routine 02/16/2024 10:43 AM CDT Well woman exam DEXA AXIAL SKELETON BONE DENSITY 1 OR MORE SITES Routine 06/15/2015 2:25 PM FIELD CARE ADVOCATE from Last 3 Months or Most Recently Relevant to Health Maintenance Results * Screening Mammogram Bilateral W Tomás (06/03/2024 11:01 AM FIELD CARE ADVOCATE) Anatomical Region Laterality Modality Breast Bilateral Mammography 06/03/2024 11:1 3 AM FIELD CARE ADVOCATE Impressions 06/03/2024 11:13 AM FIELD CARE ADVOCATE There is no mammographic evidence of malignancy. A 1 year screening mammogram is recommended. BI-RADS: 1 - Negative. The patient has been or will be contacted. The patient will be entered into a reminder system with a target due date of 1 year for her next mammogram. Electronically signed by: Kalpana Jefferson M.D. Narrative 06/03/2024 11:13 AM FIELD CARE ADVOCATE EXAMINATION: SCREENING MAMMOGRAM BILATERAL W TOMÁS ORDERING [...] no suspicious interval change. us Stephenie Muse CREDIT UNION FIELD EXAMINER IMG MAMMO PROCEDURES Final Resul t * Pap with reflex to High Risk HPV and Genotyping (Cytology Component) (02/16/2024 10:43 AM CDT) Thin prep (Pap test) 02/16/2024 10:43 AM CDT 02/16/2024 10:43 AM CDT Narrative PATHOLOGY CH - 02/23/2024 12:19 PM CDT [facility] Department of Pathology [address] [place], [place] [id number] Final Report Note to Patients: This report [...] the details. Patient Name: CRISTIANE SHEEHAN Address: [address] [place] [address] Gender: F : 1960 (Age: 63) Service: Location: [facility] : [id number] [facility] #: [id number] Patient Type: SPECIMEN Taken: 02/16/2024 Received: 02/16/2024 Accessioned:: 02/17/2024 Reported: 02/23/2024 Physician(s): LUIS Antonio FNP Diagnosis: SOURCE OF SPECIMEN Imaged Thinprep Pap Test w/ Reflex HPV - Special Education Paraeducator Cytologic Material: STATEMENT OF ADEQUACY - Specimen satisfactory for interpretation; indeterminate endocervical component due to marked atrophy GENERAL CATEGORIZATION: - Negative for intraepithelial lesion or malignancy INTERPRETATION: - Atrophic smear pattern - Numerous inflammatory cells present DONAVON Park(ASCP) Report Electronically Reviewed and Signed Out By DONAVON Crowley(ASCP) 02/23/2024 12:19:58Specimen(s) Received: A: Imaged Thinprep Pap Test w/ Reflex HPV - Special Education Paraeducator Cytologic Material Clinical History: Menstrual History: Post-menopausal [...] determined by the Surgical Pathology Department at [facility] as part of an ongoing quality assurance representative program and in compliance with federally mandated [...] characteristics determined by the Surgical Pathology Department [facility]. It has not been cleared or approved by the U. S. Food and Drug Administration. Stephenie Muse NP LAB CYTOLOGY ORDERABLES Final Re sult PATHOLOGY [address] [place] [address] * Dexa Axial Skeleton Bone Density 1 or 2 Site (06/15/2015 2:25 PM FIELD CARE ADVOCATE) Anatomical Region Laterality Modality Body N/A Radiographic Ally ging 06/15/2015 2:25 PM FIELD CARE ADVOCATE Narrative 06/16/2015 12:44 PM FIELD CARE ADVOCATE vm DEXA Bone Density Axial Acc#: [id number] DATE OF EXAM: Jun 15 2015 CLINICAL [...] DR DOUGLAS RAMIREZ Requesting Attending Attending ID: [id number] Requesting ID: [id number] Report To 1 ID: [id number] Report To 1 Name: DR DOUGLAS RAMIREZ Report To 1 FAX: [phone] NextGen Order #: Procedure Note Provider, MD Dacia - 09/03/2016 DEXA Bone Density Axial Acc#: [id number] DATE OF EXAM: Jun 15 2015 CLINICAL [...] DR DOUGLAS RAMIREZ Requesting Attending Attending ID: [id number] Requesting ID: [id number] Report To 1 ID: [id number] Report To 1 Name: DR DOUGLAS RAMIREZ Report To 1 FAX: [phone] NextGen Order #: Historical Provider MD ADAMS DXA PROCEDURES Final Result from Last 3 Months or Most Recently Relevant to Health Maintenance Insurance MEDICARE Care Teams Commercial Loan Closer Relationship Specialty Start Date End Date Burt Eli MD PCP - General 08/25/11
== END 2024-10-27 14:36 | disposition home or self-care (01) ==
PROVIDERS: PCP Family Medicine; Visit Provider Physician Assistant Medical
DX: M79.89 Other specified soft tissue disorders (principal); Z86.718 Personal history of other venous thrombosis and embolism; I82.412 Acute embolism and thrombosis of left femoral vein; I82.432 Acute embolism and thrombosis of left popliteal vein
CPT/HCPCS: 93970

== ENCOUNTER 2025-01-11 00:34 | Day surgery (SDC) | payer MEDICARE, OTHER, SELFPAY ==
[2024-12-29 15:48] VITALS: BMI 24.9
--- NOTE | 2025-01-04 10:06 | SUR.PREOP ---
Spoke with patient in regards to her Xarelto. Last dose 01/08/2025 for procedure on 01/11/2025. She verbalized understanding.
--- OUTSIDE RECORDS SUMMARY | 2025-01-11 00:39 | XMS_ITS | Clinical Summary ---
Author Organization [facility] [address] [place] [address] Care Team Providers Care Costing Analyst Name Role Phone Burt Eli MD Primary Care Provider [phone] Allergies No known active allergies Medications cholecalciferol [...] on file Legal Sex Female 1:46 AM LAST SAWYER Gender Identity Not on file Sexual Orientation [...] 5 season) 2024 06/29/2020, 06/01/2020 Influenza Vaccine (#1) 2025 03/25/2018 Depression Screening 02/15/2025 02/16/2024, 11/22/19 23 Breast Cancer Screening-Mammogram 06/03/2025 06/03/2024, 12/25/2022, 06/15/2015, Additional history exists Cervical Cancer Screening Discontinued 2023, 11/21/2022, 06/10/2015 Procedures Procedure Name Priority Date/Time Associated Diagnosis Comments SCREENING MAMMOGRAM BILATERAL W TOMÁS Schedule Routine, Read Routine (OP Routine) 06/03/2024 11:01 AM LAST SAWYER Encounter for screening mammogram for breast cancer PAP WITH REFLEX TO HIGH RISK HPV Routine 02/16/2024 10:43 AM CDT Well woman exam DEXA AXIAL SKELETON BONE DENSITY 1 OR MORE SITES Routine 06/15/2015 2:25 PM LAST SAWYER from Last 3 Months or Most Recently Relevant to Health Maintenance Results * Screening Mammogram Bilateral W Tomás (06/03/2024 11:01 AM LAST SAWYER) Anatomical Region Laterality Modality Breast Bilateral Mammography 06/03/2024 11:1 3 AM LAST SAWYER Impressions 06/03/2024 11:13 AM LAST SAWYER There is no mammographic evidence of malignancy. A 1 year screening mammogram is recommended. BI-RADS: 1 - Negative. The patient has been or will be contacted. The patient will be entered into a reminder system with a target due date of 1 year for her next mammogram. Electronically signed by: Kalpana Jefferson M.D. Narrative 06/03/2024 11:13 AM LAST SAWYER EXAMINATION: SCREENING MAMMOGRAM BILATERAL W TOMÁS ORDERING [...] no suspicious interval change. us Stephenie Muse TELEVISION MAINTENANCE MAN IMG MAMMO PROCEDURES Final Resul t * Pap with reflex to High Risk HPV and Genotyping (Cytology Component) (02/16/2024 10:43 AM CDT) Thin prep (Pap test) 02/16/2024 10:43 AM CDT 02/16/2024 10:43 AM CDT Narrative PATHOLOGY CH - 02/23/2024 12:19 PM CDT [facility] Department of Pathology [address] [place] [address] Final Report Note to Patients: This report [...] the details. Patient Name: CRISTIANE SHEEHAN Address: [facility] [place] [address] Gender: F : 1960 (Age: 63) Service: Location: N : [id number] [facility] #: [id number] Patient Type: SPECIMEN Taken: 02/16/2024 Received: 02/16/2024 Accessioned:: 02/17/2024 Reported: 02/23/2024 Physician(s): LUIS Antonio FNP Diagnosis: SOURCE OF SPECIMEN Imaged Thinprep Pap Test w/ Reflex HPV - Inclusion Teacher Cytologic Material: STATEMENT OF ADEQUACY - Specimen satisfactory for interpretation; indeterminate endocervical component due to marked atrophy GENERAL CATEGORIZATION: - Negative for intraepithelial lesion or malignancy INTERPRETATION: - Atrophic smear pattern - Numerous inflammatory cells present DONAVON Park(ASCP) Report Electronically Reviewed and Signed Out By DONAVON Crowley(ASCP) 02/23/2024 12:19:58Specimen(s) Received: A: Imaged Thinprep Pap Test w/ Reflex HPV - Inclusion Teacher Cytologic Material Clinical History: Menstrual History: Post-menopausal [...] determined by the Surgical Pathology Department at [facility] as part of an ongoing lead quality control technician program and in compliance with federally mandated [...] characteristics determined by the Surgical Pathology Department [facility]. It has not been cleared or approved by the U. S. Food and Drug Administration. Stephenie Muse NP LAB CYTOLOGY ORDERABLES Final Re sult PATHOLOGY [address] [place] [address] * Dexa Axial Skeleton Bone Density 1 or 2 Site (06/15/2015 2:25 PM LAST SAWYER) Anatomical Region Laterality Modality Body N/A Radiographic Ally ging 06/15/2015 2:25 PM LAST SAWYER Narrative 06/16/2015 12:44 PM LAST SAWYER vm DEXA Bone Density Axial Acc#: [id number] DATE OF EXAM: Jun 15 2015 CLINICAL [...] DR DOUGLAS RAMIREZ Requesting Attending Attending ID: [id number] Requesting ID: [id number] Report To 1 ID: [id number] Report To 1 Name: DR DOUGLAS RAMIREZ Report To 1 FAX: [phone] NextGen Order #: Procedure Note Provider, MD Dacia - 09/03/2016 DEXA Bone Density Axial Acc#: [id number] DATE OF EXAM: Jun 15 2015 CLINICAL [...] DR DOUGLAS RAMIREZ Requesting Attending Attending ID: [id number] Requesting ID: [id number] Report To 1 ID: [id number] Report To 1 Name: DR DOUGLAS RAMIREZ Report To 1 FAX: [phone] NextGen Order #: Historical Provider MD ADAMS DXA PROCEDURES Final Result from Last 3 Months or Most Recently Relevant to Health Maintenance Insurance MEDICARE Care Teams Costing Analyst Relationship Specialty Start Date End Date Burt Eli MD PCP - General 08/25/11
--- OUTSIDE RECORDS SUMMARY | 2025-01-11 00:39 | XMS_ITS | Encounter Summary ---
Author Organization [facility] Healthcare Address [address] [place] [address] Care Team Providers Care Rod Cup Filler Name Role Phone Burt Eli MD Primary Care Provider [phone] Encounter Details Date Type Department Care Team (Late st Contact Info) Description 09/17/2017 Orders Only [facility] Health Information Management [address] [place] [address] Scanning, Provider Social History Tobacco Use Types Packs/Day Years Used Date Smoking Tobacco: Former Cigarettes Q uit: 02/11/2015 Comments:Smoking History Pac ks/day: 1 Packs Alcohol Use Standard Drinks/Week Comments Yes 0 (1 standard drink = 0.6 oz pur e alcohol) Comments Unknown Sex and Gender Information Value Date Recorded Sex Assigned at Not on file Legal Sex Female 1:46 AM BEADER Gender Identity Not on file Sexual Orientation Not on file documented as of this encounter Plan of Treatment Not on file documented as of this encounter Procedures Procedure Name Priority Date/Time Associated Diagnosis Comments SCAN - RADIOLOGY/IMAGING 09/17/2017 documented in this encounter Results * SCAN - RADIOLOGY/IMAGING (09/17/2017) Anatomical Region Laterality Modality Other us Provider Scanning Final Result documented in this encounter Visit Diagnoses Not on filedocumented in this encounter Care Teams Rod Cup Filler Relationship Specialty Start Date End Date Burt Eli MD PCP - General 08/25/11 documented as of this encounter
[2025-01-11 08:12] VITALS: BP 141/79; PULSE 71; RESP 18; TEMP 36.1; O2SAT 100; BMI 24.8
[2025-01-11] MEDS: LACTATED RINGERS 1,000 ML 150 ML IV CONT (08:18)
--- NOTE | 2025-01-11 08:39 | P.PNAN_ITS ---
Anes - Initial Pre Proc Eval Procedure: Operation Date: 01/11/25 09:30 Proposed Procedures p Screening Colonoscopy - Dung Pickett MD Date/Time: 01/11/25 08:39 Surgeon: Dung Pickett MD Pre Op Diagnosis: neoplasm screening, history of colon polyps Patient Data Age: 64 Gender: F Height: 1.65 m Weight: 67.7 kg Last Vital Signs Temp 36.1 C L 01/11/25 08:12 Pulse 71 01/11/25 08:12 Resp 18 01/11/25 08:12 BP 141/79 H 01/11/25 08:12 Pulse Ox 100 01/11/25 08:12 O2 Del Method Room Air 01/11/25 08:12 Allergies Allergy/AdvReac Type Severity Reaction Status Date / Time No Known Allergies Allergy Verified 01/11/25 08:11 Home Medications ?Medication ?Instructions ?Recorded ?Confirmed ?Type cholecalciferol (vitamin D3) 25 25 mcg PO DAILY 01/11/25 History mcg (1,000 unit) tablet (Vitamin D3) metoprolol tartrate 100 mg tablet 100 mg PO BID #180 t abs 03/06/24 01/11/25 Rx lisinopril 40 mg tablet 40 mg PO DAILY #90 tabs 11/0 01/0101/11/25 Rx rosuvastatin 20 mg tablet 20 mg PO DAILY #90 tabs 05/1201/11/25 Rx rivaroxaban 15 mg (42)-20 mg (9) See Rx Instructions P O .COMPLEX 10/29/24 01/11/25 Rx tablets in a starter pack (Xarelto #51 ea DVT-PE Treatment 30-Day Starter) Patient hx anesthesia problems: none Family hx anesthesia problems: none Results Review: All pre-operative results and documents have been reviewed as part of the pre- operative evaluation. [facility] Past Medical History Medical History (Updated 01/11/25 @ 09:09 by Dung Pickett MD) Colon cancer screening Leg DVT (deep venous thromboembolism), acute Screening for breast cancer Screening for osteoporosis GERD (gastroesophageal reflux disease) Hypertension 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 Osteoarthritis of right knee Knee joint effusion Surgical History Surgical History H/O lateral meniscus repair of right knee Family History Family History Father Hypertension Cerebrovascular accident Family history of congestive heart failure Mother Acute myocardial infarction Grandparent Family history of throat cancer Sibling No problems noted. 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 Informed Consent: The patient's anesthetic plan and its attendant risks and benefits were discussed with the patient/family/POA. Questions were solicited and answers provided to the satisfaction of the patient/family/POA.
--- NOTE | 2025-01-11 09:08 | PM.HPGS ---
History of Present Illness History of Present Illness Consent: Risks, benefits, and alternatives have been discussed and questions answered. Patient agrees to proceed with procedure. Chief complaint: neoplasm screening, history of colon polyps Narrative: Ruth Dupont is a 64 year old female here for screening, last colonoscopy 2013 Review of Systems Review of Systems: All systems reviewed & are unremarkable except as noted in HPI and below PMFSH Past Medical History Medical History (Updated 01/11/25 @ 09:09 by Dung Pickett MD) Colon cancer screening Leg DVT (deep venous thromboembolism), acute Screening for breast cancer Screening for osteoporosis GERD (gastroesophageal reflux disease) Hypertension 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 Osteoarthritis of right knee Knee joint effusion Surgical History Surgical History H/O lateral meniscus repair of right knee Family History Family History Father Hypertension Cerebrovascular accident Family history of congestive heart failure Mother Acute myocardial infarction Grandparent Family history of throat cancer Sibling No problems noted. 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 Gender identity (if verbalized by the patient): Female Spiritual care concerns: No Meds Home Medications and Allergies Home Medications ?Medication ?Instructions ?Recorded ?Confirmed ?Type cholecalciferol (vitamin D3) 25 25 mcg PO DAILY 11/16/19 01/11/25 History mcg (1,000 unit) tablet (Vitamin D3) metoprolol tartrate 100 mg tablet 100 mg PO BID #180 tabs 03/06/24 01/11/25 Rx lisinopril 40 mg tablet 40 mg PO DAILY #90 tabs 03/18/24 01/11/25 Rx rosuvastatin 20 mg tablet 20 mg PO DAILY #90 tabs 06/01/24 01/11/25 Rx rivaroxaban 15 mg (42)-20 mg (9) See Rx Instructions PO .COMPLEX 10/29/24 01/11/25 Rx tablets in a starter pack (Xarelto #51 ea DVT-PE Treatment 30-Day Starter) Allergies Allergy/AdvReac Type Severity Reaction Status Date / Time No Known Allergies Allergy Verified 01/11/25 08:11 Vital Signs Vital Signs - 24 hr 01/11/25 08:12 Temperature 97 F L Pulse Rate 71 Respiratory Rate 18 Blood Pressure 141/79 H Pulse Oximetry 100 Oxygen Delivery Room Air Exam Const: General: comfortable and no acute distress HENMT: Face/Nose/Sinus: Normal nares present Eyes: General: appearance normal, both eyes and all related structures Neck: Neck: no JVD Resp: Auscultation: clear to auscultation bilaterally Cardio: Rate: regular rate Rhythm: regular rhythm GI: Inspection: non-distended GI Palp: Yes Soft to palpation Skin: General skin exam: normal color Neuro: Speech: normal speech Extrem: General: normal to inspection Psych: Mental Status: mental status grossly normal Assessment and Plan Assessment and plan (1) Colon cancer screening: Code(s): Z12.11 - Encounter for screening for malignant neoplasm of colon Status: Acute Assessment and Plan: colonoscopy
[2025-01-11 09:25] VITALS: BP 159/86; PULSE 72; RESP 24; O2SAT 96
--- NOTE | 2025-01-11 09:25 | S_PTH ---
PATIENT: Ruth Dupont LOC: [facility] Levi#:[id number] AGE/SX: 64/F ROOM: RE01/11/[address]: Dung Pickett MD : 1960 BED: DIS: 01/11/2025 SPEC #: [id number] RECD: 01/11/25 10:06 STATUS: CLAUDIA HRENANDEZ #: [id number] DARRELL: 01/11/25 09:[address]: Dung Pickett DEPT: [facility] Surgical RECD BY: Segundo Vick ENTERED: 01/11/25 10:07 SP TYPE: Surgical OTHR DR: Burt Eli MD Tissues: A - Colon Polypectomy Procedures: Hematoxylin and Eosin Stain Gross and Microscopic Level 4
[2025-01-11 09:35] VITALS: BP 146/79; PULSE 70; RESP 23; O2SAT 97
[2025-01-11 09:45] VITALS: BP 150/85; PULSE 68; RESP 19; O2SAT 97
== END 2025-01-11 09:54 | disposition home or self-care (01) ==
PROVIDERS: PCP Family Medicine; Visit Provider Internal Medicine Gastroenterology
PROC: 0DJD8ZZ Inspection of Lower Intestinal Tract, Via Natural or Artificial Opening Endoscopic (ICD-10-PCS; CPT 45378; principal; 2025-01-11 09:30)
DX: Z12.11 Encounter for screening for malignant neoplasm of colon (principal); D12.5 Benign neoplasm of sigmoid colon; K57.30 Diverticulosis of large intestine without perforation or abscess without bleeding; K64.8 Other hemorrhoids; Z87.891 Personal history of nicotine dependence
CPT/HCPCS: 45385; 88305; J2704; J7120

== ENCOUNTER 2025-03-16 14:13 | Outpatient (CLI) | payer MEDICARE, OTHER, SELFPAY ==
--- NOTE | ~2025-03-16 | CT_ITS ---
EXAMINATION: CT lung screening DATE: 03/16/2025 14:48 INDICATION: Personal history of nicotine dependence TECHNIQUE: Computed tomography (CT) of the chest was performed without intravenous contrast. The dose-length product was 63.77 mGy-cm. Automated exposure control and iterative reconstruction technique were employed. COMPARISON: None FINDINGS: Heart size normal. No significant pleural or pericardial effusion. There are densely calcified mediastinal lymph nodes, consistent with chronic granulomatous disease. There is atherosclerosis of the aorta and coronary arteries. Upper abdomen is unremarkable. There are a few calcified granulomas in both lungs. There are bilateral pulmonary nodules which are not clearly calcified measuring 2 mm or less. There is emphysema. No endobronchial lesions. There is a 6 mm noncalcified pulmonary nodule right middle lobe. IMPRESSION: 1. Lung-RADS category 3: Probably benign. Further evaluation is recommended with noncontrast low-dose chest CT in 6 months. Reviewed, dictated and finalized at location O. EU MANAGER IMPRESSION: 1. Lung-RADS category 3: Probably benign. Further evaluation is recommended wit h noncontrast low-dose chest CT in 6 months.
--- OUTSIDE RECORDS SUMMARY | 2025-03-16 20:28 | XMS_ITS | Clinical Summary ---
Author Organization [facility] Address [address] [place] [address] Phone Care Team Providers Care Air Defence Officer Name Role Phone Minal Tejada Primary Care Provider [phone] Allergies No known active allergies Medications lisinopril [...] Comments Blood Pressure 132/88 03/31/2020 1:30 AM ANIMAL HUSBANDRY MANAGER Pulse 75 03/31/2020 1:30 AM ANIMAL HUSBANDRY MANAGER Temperature 36.2 C (97.2 F) 03/30/2020 10:10 PM ANIMAL HUSBANDRY MANAGER Respiratory Rate 18 03/31/2020 1:30 AM ANIMAL HUSBANDRY MANAGER Oxygen Saturation 96% 03/31/2020 1:30 AM ANIMAL HUSBANDRY MANAGER Inhaled Oxygen Concentration - - Weight 61.2 kg (135 lb) 03/30/2020 10:10 PM ANIMAL HUSBANDRY MANAGER Height 167.6 cm (5' 6) 03/30/2020 10:10 PM ANIMAL HUSBANDRY MANAGER Body Mass Index 21.79 03/30/2020 10:10 PM ANIMAL HUSBANDRY MANAGER Plan of Treatment Health Maintenance Due Date Last Done Comments Hepatitis C Virus (HCV) Screening 1960 TdaP Immunization 1960 Cologuard 2003 Colonoscopy 2003 Colorectal Cancer Screening 2003 Immunochemical Fecal Occult Blood 2003 Pneumococcal Immunization (5 0+ years) (1 of 1 - PCV) 2008 Zoster Immunization (1 of 2) 2008 Influenza Immunization (#1) 2025 03/25/2018 SARS-COV-2 Immunization (3 - season) 2025 06/29/2020, 06/01/2020 Respiratory Syncytial Virus (RSV) Immunization [...] age to complete this topic Care Teams Air Defence Officer Relationship Specialty Start Date End Date Minal Tejada [address] [place], [place] [id number] PCP - General Family Medicine 10/08/17
--- OUTSIDE RECORDS SUMMARY | 2025-03-16 20:28 | XMS_ITS | Clinical Summary ---
Author Organization [facility] [address] Address [address] [place] [address] Care Team Providers Care Market Risk Specialist Name Role Phone Burt Eli MD Primary Care Provider [phone] Allergies No known active allergies Medications cholecalciferol [...] on file Legal Sex Female 1:46 AM BURGLAR ALARM INSTALLER Gender Identity Not on file Sexual Orientation [...] 65+ 11/22/2023 11/21/2022 Covid-19 Vaccine (3 - 2024-2 6 season) 2025 06/29/2020, 06/01/2020 Influenza Vaccine (#1) 2025 03/25/2018 Depression Screening 02/15/2025 02/16/2024, 11/22/19 23 Breast Cancer Screening-Mammogram 06/03/2025 06/03/2024, 12/25/2022, 06/15/2015, Additional history exists Cervical Cancer Screening Discontinued 2023, 11/21/2022, 06/10/2015 Procedures Procedure Name Priority Date/Time Associated Diagnosis Comments SCREENING MAMMOGRAM BILATERAL W TOMÁS Schedule Routine, Read Routine (OP Routine) 06/03/2024 11:01 AM BURGLAR ALARM INSTALLER Encounter for screening mammogram for breast cancer PAP WITH REFLEX TO HIGH RISK HPV Routine 02/16/2024 10:43 AM CDT Well woman exam DEXA AXIAL SKELETON BONE DENSITY 1 OR MORE SITES Routine 06/15/2015 2:25 PM BURGLAR ALARM INSTALLER from Last 3 Months or Most Recently Relevant to Health Maintenance Results * Screening Mammogram Bilateral W Tomás (06/03/2024 11:01 AM BURGLAR ALARM INSTALLER) Anatomical Region Laterality Modality Breast Bilateral Mammography 06/03/2024 11:1 3 AM BURGLAR ALARM INSTALLER Impressions 06/03/2024 11:13 AM BURGLAR ALARM INSTALLER There is no mammographic evidence of malignancy. A 1 year screening mammogram is recommended. BI-RADS: 1 - Negative. The patient has been or will be contacted. The patient will be entered into a reminder system with a target due date of 1 year for her next mammogram. Electronically signed by: Kalpana Jefferson M.D. Narrative 06/03/2024 11:13 AM BURGLAR ALARM INSTALLER EXAMINATION: SCREENING MAMMOGRAM BILATERAL W TOMÁS ORDERING [...] no suspicious interval change. us Stephenie Muse PATIENT CARE SECRETARY IMG MAMMO PROCEDURES Final Resul t * Pap with reflex to High Risk HPV and Genotyping (Cytology Component) (02/16/2024 10:43 AM CDT) Thin prep (Pap test) 02/16/2024 10:43 AM CDT 02/16/2024 10:43 AM CDT Narrative PATHOLOGY CH - 02/23/2024 12:19 PM CDT [facility] Department of Pathology [address] [place] [address] Final Report Note to Patients: This report [...] the details. Patient Name: CRISTIANE SHEEHAN Address: [facility] [place] [address] Gender: F : 1960 (Age: 63) Service: Location: N : [id number] [facility] #: [id number] Patient Type: SPECIMEN Taken: 02/16/2024 Received: 02/16/2024 Accessioned:: 02/17/2024 Reported: 02/23/2024 Physician(s): LUIS Antonio FNP Diagnosis: SOURCE OF SPECIMEN Imaged Thinprep Pap Test w/ Reflex HPV - Harpsichord Maker Cytologic Material: STATEMENT OF ADEQUACY - Specimen satisfactory for interpretation; indeterminate endocervical component due to marked atrophy GENERAL CATEGORIZATION: - Negative for intraepithelial lesion or malignancy INTERPRETATION: - Atrophic smear pattern - Numerous inflammatory cells present DONAVON Park(ASCP) Report Electronically Reviewed and Signed Out By DONAVON Crowley(ASCP) 02/23/2024 12:19:58Specimen(s) Received: A: Imaged Thinprep Pap Test w/ Reflex HPV - Harpsichord Maker Cytologic Material Clinical History: Menstrual History: Post-menopausal [...] determined by the Surgical Pathology Department at [facility] as part of an ongoing quality assurance auditor program and in compliance with federally mandated [...] characteristics determined by the Surgical Pathology Department [facility]. It has not been cleared or approved by the U. S. Food and Drug Administration. Stephenie Muse NP LAB CYTOLOGY ORDERABLES Final Re sult PATHOLOGY [address] [place] [address] * Dexa Axial Skeleton Bone Density 1 or 2 Site (06/15/2015 2:25 PM BURGLAR ALARM INSTALLER) Anatomical Region Laterality Modality Body N/A Radiographic Ally ging 06/15/2015 2:25 PM BURGLAR ALARM INSTALLER Narrative 06/16/2015 12:44 PM BURGLAR ALARM INSTALLER vm DEXA Bone Density Axial Acc#: [id number] DATE OF EXAM: Jun 15 2015 CLINICAL [...] DR DOUGLAS RAMIREZ Requesting Attending Attending ID: [id number] Requesting ID: [id number] Report To 1 ID: [id number] Report To 1 Name: DR DOUGLAS RAMIREZ Report To 1 FAX: [phone] NextGen Order #: Procedure Note Provider, MD Dacia - 09/03/2016 DEXA Bone Density Axial Acc#: [id number] DATE OF EXAM: Jun 15 2015 CLINICAL [...] 6:38P Approved Electronically by: ABEBE Paris, DR MYA on: Jun 16 201512:43P Attending: DR DOUGLAS RAMIREZ Requesting: DR DOUGLAS RAMIREZ Requesting Attending Attending ID: [id number] Requesting ID: [id number] Report To 1 ID: [id number] Report To 1 Name: DR DOUGLAS RAMIREZ Report To 1 FAX: [phone] NextGen Order #: Historical Provider MD ADAMS DXA PROCEDURES Final Result from Last 3 Months or Most Recently Relevant to Health Maintenance Insurance MEDICARE Care Teams Market Risk Specialist Relationship Specialty Start Date End Date Burt Eli MD PCP - General 08/25/11
--- OUTSIDE RECORDS SUMMARY | 2025-03-16 20:28 | XMS_ITS | Encounter Summary ---
Author Organization [facility] Healthcare Address [address] [place] [address] Care Team Providers Care Flight Coordinator Name Role Phone Burt Eli MD Primary Care Provider [phone] Encounter Details Date Type Department Care Team (Late st Contact Info) Description 09/17/2017 Orders Only [facility] [place] Information Management [address] [place] [id number] Scanning, Provider Social History Tobacco Use Types Packs/Day Years Used Date Smoking Tobacco: Former Cigarettes Q uit: 02/11/2015 Comments:Smoking History Pac ks/day: 1 Packs Alcohol Use Standard Drinks/Week Comments Yes 0 (1 standard drink = 0.6 oz pur e alcohol) Comments Unknown Sex and Gender Information Value Date Recorded Sex Assigned at Not on file Legal Sex Female 1:46 AM POST SECONDARY PROFESSIONAL Gender Identity Not on file Sexual Orientation [...] on filedocumented in this encounter Care Teams Flight Coordinator Relationship Specialty Start Date End Date Burt Eli MD PCP - General 08/25/11 documented as of this encounter
== END 2025-03-16 14:14 | disposition home or self-care (01) ==
PROVIDERS: PCP Family Medicine; Visit Provider Physician Assistant Medical
DX: Z12.2 Encounter for screening for malignant neoplasm of respiratory organs (principal); Z87.891 Personal history of nicotine dependence
CPT/HCPCS: 71271

== ENCOUNTER 2025-04-17 10:52 | Outpatient (CLI) | payer MEDICARE, OTHER, SELFPAY ==
--- NOTE | ~2025-04-17 | DEXA_ITS ---
Bone Density Report Name: CRISTIANE SHEEHAN Age: 64 Sex: Female Ethnicity: White Date of : 1960 Indication: osteopenia; height loss; Referring Provider: Minal Tejada Study: Bone densitometry was performed. Exam Date: April 17, 2025 Accession number: [id number] Bone Density: Region BMD T-score Z-score Classification AP Spine(L1-L4) 1.161 1.0 2.9 Normal Femoral Neck (Left) 0.605 -2.2 -0.6 Osteopenia Total Hip (Left) 0.686 -2.1 -0.8 Osteopenia Femoral Neck (Right) 0.576 -2.5 -0.9 Osteoporosis Total Hip (Right) 0.648 -2.4 -1.1 Osteopenia Total Hip Mean 0.667 -2.3 -1.0 Osteopenia World Health Organization criteria for BMD impression classify patients as: Normal (T-score at or above -1.0), Osteopenia (T-score between -1.0 and -2.5), or Osteoporosis (T-score at or below -2.5). 10-year Fracture Risk: FRAX not reported because: Some T-score for Spine Total or Hip Total or Femoral Neck at or below -2.5 Previous Exams: -- Region Exam Age BMD T-score BMD Change BMD Change Date g/cm2 vs Baseline vs Previous -- Total Hip(Left) 04/17/2025 64 0.686 -2.1 -8.7%* -8.7%* 01/11/2022 61 0.751 -1.6 Total Hip(Right) 04/17/2025 64 0.648 -2.4 -8.8%* -8.8%* 01/11/2022 61 0.710 -1.9 -- *Denotes significance at 95% confidence level, LSC for Total Hip = 0.027 g/cm2 Clinical Information Provided by Patient: Has used the following medications: Vitamin D, Calcium Patient maximum height was 67 Menopause Age: 38 No regular weight bearing exercise Drinks caffeinated beverages Onset of menses at age 11 Number of children 0 Impression: The patient has osteoporosis, based on the Right Femoral Neck T-score. The BMD for the Total Hip(Left) decreased, changing by -8.7% since the last DXA exam. The BMD for the Total Hip(Right) decreased, changing by -8.8% since the last DXA exam. Discussion: INCREASED RISK OF FRACTURE. BONE DENSITY IS UNDESIRABLY LOW AT ONE OR MORE SKELETAL SITES, CONSISTENT WITH POSTMENOPAUSAL OSTEOPOROSIS. This patient's lowest T-score meets the World Health Organization's (WHO) criteria for osteoporosis at one or more sites (T-score -2.5 or below). In untreated patients, the risk of osteoporotic fracture increases approximately two-fold for each 1.0 SD decrease in T-score. Low bone density is not the only risk factor for fracture; also consider factors such as patient's age, frailty or poor health, risk of falling, risk of injury, previous osteoporotic fracture, family history of osteoporosis, cigarette smoking, low body weight, etc. Not everyone with low bone mineral density has osteoporosis; osteomalacia and other metabolic bone disorders should also be considered. Patients who have osteoporosis should be evaluated for specific diseases and conditions (secondary causes) that may cause or contribute to bone loss. The [place] [employer] (AACE) and National Osteoporosis Foundation (NOF) recommend pharmacologic intervention for all postmenopausal women whose T-score is in this range. The patient should follow a healthful lifestyle (good nutrition with adequate calcium and vitamin D, and appropriate weight-bearing exercise). Follow-Up: Consider a repeat BMD and Vertebral Fracture Assessment (VFA) exam in 2 years or sooner if medically necessary, to reassess this patient's status. Reported by: TAMARA on 04/17/2025 11:18:00 AM. Reviewed, dictated and finalized at location A.
== END 2025-04-17 10:53 | disposition home or self-care (01) ==
LOC: MICIMG 10:56
PROVIDERS: PCP Family Medicine; Visit Provider Physician Assistant Medical
DX: M85.88 Other specified disorders of bone density and structure, other site (principal); M85.852 Other specified disorders of bone density and structure, left thigh; M85.851 Other specified disorders of bone density and structure, right thigh; M81.0 Age-related osteoporosis without current pathological fracture
CPT/HCPCS: 77080